=== PATIENT | female | born 1995 | race Hispanic/Latino ===

== ENCOUNTER 2022-03-08 16:30 | Observation (INO) | payer OTHER ==
[~2022-03-08] VITALS: Ht 167.6 cm; Wt 73.8 kg
[2022-03-08] MEDS ORDERED: PRENTAB77 PO (16:42)
[2022-03-08 18:47] LABS: BASO % 0.2 % (0.0-1.0); EOS # 0.1 10^3/uL (0.0-0.5); EOS % 0.8 % (0.0-3.0); HEMATOCRIT 37.2 % (36.0-47.0); HEMOGLOBIN 12.4 g/dl (12.0-15.5); LYMPH # 2.5 10^3/uL (1.5-5.0); LYMPH % 28.2 % (24.0-44.0); MEAN CORPUSCULAR HEMOGLOBIN 31.8 pg (27.0-33.0); MEAN CORPUSCULAR HGB CONC 33.3 g/dl (32.0-36.5); MEAN CORPUSCULAR VOLUME 95.4 fl (80.0-96.0); MONO # 0.7 10^3/uL (0.0-0.8); MONO % 8.1 % (2.0-8.0); NEUTROPHILS # 5.5 10^3/uL (1.5-8.5); NEUTROPHILS % 62.6 % (36.0-66.0); PLATELET COUNT, AUTOMATED 214 10^3/uL (150-450); WHITE BLOOD COUNT 8.7 10^3/uL (4.0-10.0)
[2022-03-08 19:16] LABS: BLOOD UREA NITROGEN 10 MG/DL (9-23); CALCIUM LEVEL 9.1 MG/DL (8.5-10.1); CARBON DIOXIDE LEVEL 24 MMOL/L (20-31); CHLORIDE LEVEL 106 MMOL/L (98-107); CREATININE FOR GFR 0.54 MG/DL (0.55-1.30); GLOMERULAR FILTRATION RATE > 60.0 (>60); GLUCOSE, FASTING 86 MG/DL (60-100); POTASSIUM SERUM 4.1 MMOL/L (3.5-5.1); SODIUM LEVEL 138 MMOL/L (136-145)
[2022-03-08 19:29] LABS: HCG, SERUM QUANTITATIVE 13681.5 MIU/ML (<4.2)
[2022-03-08] MEDS ORDERED: PNV1TABL16 PO (21:05)
[2022-03-08] MEDS ORDERED: HOME MED LIST COMPLETE! XX SCH (21:10)
[2022-03-08 22:05] LABS: BASO % 0.2 % (0.0-1.0); EOS # 0.1 10^3/uL (0.0-0.5); EOS % 0.7 % (0.0-3.0); HEMATOCRIT 36.4 % (36.0-47.0); HEMOGLOBIN 12.6 g/dl (12.0-15.5); LYMPH # 2.6 10^3/uL (1.5-5.0); LYMPH % 29.5 % (24.0-44.0); MEAN CORPUSCULAR HEMOGLOBIN 32.6 pg (27.0-33.0); MEAN CORPUSCULAR HGB CONC 34.6 g/dl (32.0-36.5); MEAN CORPUSCULAR VOLUME 94.1 fl (80.0-96.0); MONO # 0.7 10^3/uL (0.0-0.8); MONO % 7.8 % (2.0-8.0); NEUTROPHILS # 5.3 10^3/uL (1.5-8.5); NEUTROPHILS % 61.6 % (36.0-66.0); PLATELET COUNT, AUTOMATED 236 10^3/uL (150-450); RED BLOOD COUNT 3.87 10^6/uL (4.00-5.40); WHITE BLOOD COUNT 8.6 10^3/uL (4.0-10.0)
[2022-03-08 22:16] LABS: RSV AMPLIFICATION NEGATIVE (NEGATIVE)
[2022-03-08 22:27] LABS: BLOOD UREA NITROGEN 10 MG/DL (9-23); CALCIUM LEVEL 9.1 MG/DL (8.5-10.1); CARBON DIOXIDE LEVEL 22 MMOL/L (20-31); CHLORIDE LEVEL 107 MMOL/L (98-107); CREATININE FOR GFR 0.49 MG/DL (0.55-1.30); GLOMERULAR FILTRATION RATE > 60.0 (>60); GLUCOSE, FASTING 87 MG/DL (60-100); POTASSIUM SERUM 3.4 MMOL/L (3.5-5.1); SODIUM LEVEL 137 MMOL/L (136-145)
[2022-03-08] MEDS ORDERED: OXYTOCIN INJ 10UNITS/ML 1ML VIAL IV PRN (23:05)
[2022-03-08] MEDS ORDERED: OXYTOCIN DRIP 30 UNITS in IV 1 EA IV PRN ×6 (23:05)
[2022-03-08] MEDS ORDERED: LORazepam 1 MG TAB PO PRN (23:05)
[2022-03-08] MEDS ORDERED: LIDOCAINE 1% MDV 20ML VIAL INFIL PRN (23:05)
[2022-03-08] MEDS ORDERED: RHOGAM 300MCG (1500IU) INJ IM SCH (23:05)
[2022-03-08 23:41] LABS: THYROID STIMULATING HORMONE 0.435 uIU/ML (0.55-4.78); THYROXINE (T4) 11.6 UG/DL (4.5-10.9)
[2022-03-09 00:51] LABS: BASO % 0.3 % (0.0-1.0); EOS # 0.1 10^3/uL (0.0-0.5); EOS % 0.6 % (0.0-3.0); HEMATOCRIT 36.1 % (36.0-47.0); HEMOGLOBIN 12.1 g/dl (12.0-15.5); LYMPH # 2.2 10^3/uL (1.5-5.0); LYMPH % 22.2 % (24.0-44.0); MEAN CORPUSCULAR HEMOGLOBIN 31.8 pg (27.0-33.0); MEAN CORPUSCULAR HGB CONC 33.5 g/dl (32.0-36.5); MONO # 0.6 10^3/uL (0.0-0.8); MONO % 5.9 % (2.0-8.0); NEUTROPHILS # 6.9 10^3/uL (1.5-8.5); NEUTROPHILS % 70.7 % (36.0-66.0); PLATELET COUNT, AUTOMATED 227 10^3/uL (150-450); WHITE BLOOD COUNT 9.8 10^3/uL (4.0-10.0)
[2022-03-09 02:12] VITALS: BP 92/55
[2022-03-09] MEDS ORDERED: diphenhydrAMINE 25MG CAP PO ONE (02:35)
[2022-03-09 03:59] VITALS: BP 105/51
[2022-03-09 06:35] VITALS: BP 87/46
[2022-03-09 06:37] VITALS: BP 103/54
[2022-03-09] MEDS ORDERED: BUTORPHANOL 2 MG/ML 1ML VIAL IV PRN (09:05)
[2022-03-09] MEDS ORDERED: PROMETHAZINE 25MG/ML 1ML VIAL IV PRN (09:05)
[2022-03-09] MEDS ORDERED: LR 1,000 ML IV ONE (09:10)
[2022-03-09 19:10] VITALS: BP 110/65
[2022-03-09] MEDS ORDERED: BUTORPHANOL 2 MG/ML 1ML VIAL IV ONE (22:15)
[2022-03-09] MEDS ORDERED: PROMETHAZINE 25MG/ML 1ML VIAL IV ONE (22:15)
[2022-03-09 22:56] VITALS: BP 125/58
[2022-03-10] VITALS (7 sets, daily range): BP systolic 102–129; BP diastolic 53–84
[2022-03-10] MEDS ORDERED: OXYTOCIN 30UNITS IN 0.9% NaCl 500ML IV BAG As Ordered ONE (01:24)
[2022-03-10] MEDS ORDERED: IBUPROFEN 800 MG TAB PO PRN (01:55)
[2022-03-10] MEDS ORDERED: ACETAMINOPHEN 500 MG TAB PO PRN (01:55)
[2022-03-10] MEDS ORDERED: IBUP80TA PO (02:05)
[2022-03-10] MEDS ORDERED: ACET-683 PO (02:05)
[2022-03-12 06:08] LABS: ANTI PARVO VIRUS LEVEL IGG 4.7 index (0.0-0.8); ANTI PARVO VIRUS LEVEL IgM 0.1 index (0.0-0.8); BETA-2 GLYCOPROTEIN I ABY IGA <9 (0-25); BETA-2 GLYCOPROTEIN I ABY IGG <9 (0-20); BETA-2 GLYCOPROTEIN I ABY IGM <9 (0-32); CARDIOLIPIN IGA ANTIBODY <9 APL U/mL (0-11); CARDIOLIPIN IGG ANTIBODY <9 GPL U/mL (0-14); CARDIOLIPIN IGM ANTIBODY 12 MPL U/mL (0-12)
[2022-03-14 10:26] LABS: DRVV SCREEN 32.3 SEC
[2022-03-14 10:59] LABS: PTT LUPUS TYPE ANTICOAG SCREEN 0.9 (0-1.2)
== END 2022-03-10 12:30 | disposition home or self-care (01) ==
LOC: M ED 16:30 → INTOOBSV 21:09 → OBSVTOIN 21:09 → M ED INP 21:09 → M LDI 03-09 02:16
PROVIDERS: ADMIT Obstetrics & Gynecology; ATTEND Obstetrics & Gynecology
DX: O02.1 Missed abortion (principal); Z3A.17 17 weeks gestation of pregnancy; O28.5 Abnormal chromosomal and genetic finding on antenatal screening of mother
CPT/HCPCS: 36415; 76815; 80048; 80307; 81229; 84436; 84443; 84702; 85025; 85730; 86146; 86147; 86747; 86780; 86850; 86900; 86901; 87631; 88305; 96374; 96375; 96376; 99284; J0595; J2550; J2590; S0191

== ENCOUNTER 2022-03-18 05:10 | Emergency (ER) | payer OTHER ==
[~2022-03-18] VITALS: Ht 167.6 cm; Wt 73.0 kg
[~2022-03-18 05:10] MED LIST: ACET-683 PO; IBUP80TA PO; PNV1TABL16 PO; PRENTAB77 PO
[2022-03-18 05:11] VITALS: BP 102/54
== END 2022-03-18 06:00 | disposition left against medical advice (07) ==
LOC: M ED 05:10
DX: Z53.21 Procedure and treatment not carried out due to patient leaving prior to being seen by health care provider (principal)

== ENCOUNTER 2023-01-25 15:52 | Inpatient (IN) | payer OTHER ==
[~2023-01-25] VITALS: Ht 165.1 cm; Wt 85.6 kg
[2023-01-25 16:32] VITALS: BP 112/56
[2023-01-25] MEDS ORDERED: MULTTAB20 PO (16:33)
[2023-01-25] MEDS ORDERED: LACTATED RINGER'S 1000 ML IV STA (17:34)
[2023-01-25] MEDS ORDERED: PENICILLIN G POTASSIUM 5 MU IV 5 MU in D5W MINI-BAG PLUS 100 ML IV STA (17:34)
[2023-01-25] MEDS ORDERED: METHYLERGONOVINE MALEATE 0.2MG/ML 1ML VIAL IM PRN (17:35)
[2023-01-25] MEDS ORDERED: LIDOCAINE 1% MDV 20ML VIAL INFIL PRN (17:35)
[2023-01-25] MEDS ORDERED: TRANEXAMIC ACID INJection 1,000 MG in NS 100 ML IV PRN (17:35)
[2023-01-25] MEDS ORDERED: CARBOPROST TROMETHAMINE 250 MCG/ML AMP IM PRN (17:35)
[2023-01-25] MEDS ORDERED: OXYTOCIN INJ 10UNITS/ML 1ML VIAL IM PRN (17:35)
[2023-01-25] MEDS ORDERED: LR 1,000 ML IV SCH (17:35)
[2023-01-25] MEDS ORDERED: OXYTOCIN DRIP 30 UNITS in IV 1 EA IV SCH (17:35)
[2023-01-25] MEDS ORDERED: OXYTOCIN INJ 10UNITS/ML 1ML VIAL IV PRN (17:35)
[2023-01-25] MEDS ORDERED: OXYTOCIN DRIP 30 UNITS in IV 1 EA IV PRN ×6 (17:35)
[2023-01-25] MEDS: miSOPROStol 50MCG 1/2 TABLET PO PRN (18:23)
[2023-01-25 18:24] VITALS: BP 108/56
[2023-01-25 19:14] LABS: HEMATOCRIT 35.7 % (36.0-47.0); MEAN CORPUSCULAR HEMOGLOBIN 33.8 pg (27.0-33.0); MEAN CORPUSCULAR HGB CONC 33.6 g/dl (32.0-36.5); MEAN CORPUSCULAR VOLUME 100.6 fl (80.0-96.0); PLATELET COUNT, AUTOMATED 183 10^3/uL (150-450); RED BLOOD COUNT 3.55 10^6/uL (4.00-5.40)
[2023-01-25 20:05] VITALS: BP 108/56
[2023-01-25] MEDS ORDERED: **PENDING PCN ENTRY XX SCH (21:00)
[2023-01-25] MEDS ORDERED: PEN G POT 3,000,000 UNIT/50 ML 3,000,000 UNIT in IV 1 EA IV SCH (21:35)
[2023-01-25 21:44] VITALS: BP 110/55
[2023-01-25 23:22] VITALS: BP 108/54
[2023-01-26] VITALS (46 sets, daily range): BP systolic 85–123; BP diastolic 41–71
[2023-01-26] MEDS: miSOPROStol 50MCG 1/2 TABLET PO PRN (00:31)
[2023-01-26] MEDS ORDERED: ONDANSETRON 4MG 2ML VIAL IV ONE (04:05)
[2023-01-26] MEDS ORDERED: PENICILLIN G POTASSIUM 5 MU IV 5 MU in D5W MINI-BAG PLUS 100 ML IV STA (07:13)
[2023-01-26] MEDS: LR 1,000 ML IV SCH ×4 (09:05→18:17)
[2023-01-26] MEDS: PEN G POT 3,000,000 UNIT/50 ML 3,000,000 UNIT in IV 1 EA IV SCH ×3 (14:04→21:42)
[2023-01-26] MEDS ORDERED: LR 500 ML IV PRN (17:20)
[2023-01-26] MEDS ORDERED: NALOXONE INJ 0.4MG/1ML VIAL IV PRN (17:20)
[2023-01-26] MEDS ORDERED: FENTANYL/ROPIVACAINE/NACL BAG 100 ML EPIDURAL SCH (17:20)
[2023-01-26] MEDS ORDERED: ONDANSETRON 4MG 2ML VIAL IV PRN (17:20)
[2023-01-26] MEDS ORDERED: EPIDURAL/PCA KEYS XX PRN (17:20)
[2023-01-26] MEDS ORDERED: diphenhydrAMINE 50MG/ML VIAL IV PRN (17:20)
[2023-01-26] MEDS: ePHEDrine SULFATE 25 MG/5 ML(5MG/ML) SYRINGE IVP PRN ×2 (18:50→19:20)
[2023-01-26] MEDS ORDERED: diphenhydrAMINE 50MG/ML VIAL IV STA (21:03)
[2023-01-27] VITALS (23 sets, daily range): BP systolic 97–182; BP diastolic 46–131; O2SAT 16–100
[2023-01-27] MEDS: LR 1,000 ML IV SCH (00:41)
[2023-01-27] MEDS: PEN G POT 3,000,000 UNIT/50 ML 3,000,000 UNIT in IV 1 EA IV SCH (02:08)
[2023-01-27] MEDS ORDERED: TRANEXAMIC ACID 100 MG/ML 10ML VIAL As Ordered ONE (04:01)
[2023-01-27] MEDS ORDERED: LR 1,000 ML IV SCH (04:45)
[2023-01-27] MEDS ORDERED: ACETAMINOPHEN TAB 650MG DOSE (2X325MG) PO PRN (04:45)
[2023-01-27] MEDS ORDERED: IBUPROFEN 600MG TAB PO PRN (04:45)
[2023-01-27] MEDS ORDERED: OXYTOCIN DRIP 30 UNITS in IV 1 EA IV SCH ×4 (04:45)
[2023-01-27] MEDS ORDERED: MOM 30ML SUSPENSION UDC PO PRN (04:45)
[2023-01-27] MEDS ORDERED: METHYLERGONOVINE MALEATE 0.2 MG TAB PO PRN (04:45)
[2023-01-27] MEDS ORDERED: ACETAMINOPHEN 500 MG TAB PO PRN (04:45)
[2023-01-27] MEDS ORDERED: RHOGAM 300MCG (1500IU) INJ IM SCH (04:45)
[2023-01-27] MEDS ORDERED: DIBUCAINE 1% OINTMENT 30GM TOP PRN (04:45)
[2023-01-27] MEDS ORDERED: oxyCODONE 5MG TAB PO PRN (04:55)
[2023-01-27] MEDS: IBUPROFEN 800 MG TAB PO PRN (07:28)
[2023-01-27] MEDS: PRENATAL VITAMINS CHEWABLE TABLET PO SCH (09:00)
[2023-01-27] MEDS: DOCUSATE SODIUM 100MG CAPSULE PO PRN (16:40)
[2023-01-28] MEDS: DOCUSATE SODIUM 100MG CAPSULE PO PRN (05:57)
[2023-01-28 06:00] VITALS: BP 99/53; O2SAT 99
[2023-01-28] MEDS: PRENATAL VITAMINS CHEWABLE TABLET PO SCH (08:55)
[2023-01-28] MEDS: IBUPROFEN 800 MG TAB PO PRN (09:19)
[2023-01-28 14:42] VITALS: BP 115/61; O2SAT 100
[2023-01-28 18:00] VITALS: BP 106/50; O2SAT 96
[2023-01-29 05:41] VITALS: BP 107/55; O2SAT 98
[2023-01-29] MEDS ORDERED: MEASLES,MUMPS,RUBELLA VACCINE INJ (MMR-II) SC.IMMUN ONE (09:00)
[2023-01-29] MEDS ORDERED: INFLUENZA QUADRIVALENT PF VACCINE 0.5ML SYRINGE IM.IMMUN ONE (09:00)
[2023-01-29] MEDS: PRENATAL VITAMINS CHEWABLE TABLET PO SCH (09:37)
[2023-01-30] MEDS ORDERED: PNV,1TAB3 (04:25)
[2023-01-30] MEDS ORDERED: IBUP1TAB7 (04:25)
[2023-01-30] MEDS ORDERED: ACET1TAB55 (04:25)
== END 2023-01-29 15:00 | disposition home or self-care (01) | DRG 807 ==
LOC: M LDI 15:52 → M OBS 01-27 08:35
PROVIDERS: ADMIT Obstetrics & Gynecology; ATTEND Obstetrics & Gynecology
PROC: 3E0P7GC Introduction of Other Therapeutic Substance into Female Reproductive, Via Natural or Artificial Opening (ICD-10-PCS; 2023-01-25)
PROC: 10907ZC Drainage of Amniotic Fluid, Therapeutic from Products of Conception, Via Natural or Artificial Opening (ICD-10-PCS; 2023-01-26)
PROC: 10E0XZZ Delivery of Products of Conception, External Approach (ICD-10-PCS; principal; 2023-01-27)
PROC: 0KQM0ZZ Repair Perineum Muscle, Open Approach (ICD-10-PCS; 2023-01-27)
PROC: 0UQMXZZ Repair Vulva, External Approach (ICD-10-PCS; 2023-01-27)
PROC: 0HQ9XZZ Repair Perineum Skin, External Approach (ICD-10-PCS; 2023-01-27)
PROC: 3E033GC Introduction of Other Therapeutic Substance into Peripheral Vein, Percutaneous Approach (ICD-10-PCS; 2023-01-27)
DX: O99.824 Streptococcus B carrier state complicating childbirth (principal); Z37.0 Single live birth; Z3A.39 39 weeks gestation of pregnancy; O69.1XX0 Labor and delivery complicated by cord around neck, with compression, not applicable or unspecified; O70.1 Second degree perineal laceration during delivery; O71.82 Other specified trauma to perineum and vulva; O70.0 First degree perineal laceration during delivery

== ENCOUNTER 2023-01-30 04:18 | Emergency (ER) | payer OTHER ==
[~2023-01-30] VITALS: Ht 172.7 cm; Wt 80.6 kg
[2023-01-30 04:18] VITALS: BP 111/59; TEMP 97.7; O2SAT 99
[~2023-01-30 04:18] MED LIST changes: +MULTTAB20 PO
[2023-01-30] MEDS ORDERED: IBUP1TAB7 (04:25)
[2023-01-30] MEDS ORDERED: PNV,1TAB3 (04:25)
[2023-01-30] MEDS ORDERED: ACET1TAB55 (04:25)
== END 2023-01-30 06:14 | disposition left against medical advice (07) ==
LOC: M ED 04:18
DX: Z53.21 Procedure and treatment not carried out due to patient leaving prior to being seen by health care provider (principal)

== ENCOUNTER → 2023-10-28 | Outpatient (CLI) | payer OTHER ==
[~2023-10-28] MED LIST changes: +ACET1TAB55; +IBUP1TAB7; +PNV,1TAB3
== END ==
LOC: M RAD 13:04
PROVIDERS: ATTEND Obstetrics & Gynecology
DX: R10.2 Pelvic and perineal pain (principal)